=== PATIENT | female | born 1990 | race Caucasian/White ===

== ENCOUNTER 2020-05-22 18:44 | Emergency (ER) | payer OTHER ==
[~2020-05-22] VITALS: Ht 160 cm; Wt 97.5 kg
[2020-05-22 18:54] VITALS: Ht 160 cm; Wt 97.5 kg
[2020-05-22 22:11] VITALS: BP 121/81
== END 2020-05-22 22:10 | disposition home or self-care (01) ==
LOC: ED 18:44
DX: S20.211A Contusion of right front wall of thorax, initial encounter (principal); S30.1XXA Contusion of abdominal wall, initial encounter; V49.9XXA Car occupant (driver) (passenger) injured in unspecified traffic accident, initial encounter; Y93.89 Activity, other specified; Y92.89 Other specified places as the place of occurrence of the external cause; Y99.8 Other external cause status
CPT/HCPCS: Q0092